=== PATIENT | female | born 2000 | race Caucasian/White ===

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

== ENCOUNTER 2022-06-24 11:33 | Emergency (ER) | payer SELFPAY | END 2022-06-24 14:21 | disposition home or self-care (01) | LOC: JP.ED 11:33 | DX: F41.1 Generalized anxiety disorder (principal); F41.0 Panic disorder [episodic paroxysmal anxiety]; E05.90 Thyrotoxicosis, unspecified without thyrotoxic crisis or storm; R03.0 Elevated blood-pressure reading, without diagnosis of hypertension | CPT/HCPCS: 36415; 84439; 84443; 85025; 99283 ==